=== PATIENT | male | born 1935 | race Two or more races ===

== ENCOUNTER 2024-08-01 22:19 | Inpatient (IN) | payer MEDICARE, BC ==
[~2024-08-01] VITALS: Ht 165.1 cm; Wt 75.4 kg
[2024-08-01 22:24] VITALS: BP 121/52; TEMP 98.1; O2SAT 96
[2024-08-01] MEDS ORDERED: LUBI24CA5 PO (23:14)
[2024-08-01] MEDS ORDERED: METO25TA6 PO (23:14)
[2024-08-01] MEDS ORDERED: QUET25TA PO (23:14)
[2024-08-01] MEDS ORDERED: INSU100V7 SQ (23:14)
[2024-08-01] MEDS ORDERED: SEMA1PEN SQ (23:14)
[2024-08-01] MEDS ORDERED: DAPA5TAB PO (23:14)
[2024-08-01] MEDS ORDERED: INSU100V SQ (23:14)
[2024-08-02 06:52] VITALS: BP 107/42; TEMP 98; O2SAT 96
[2024-08-02] MEDS ORDERED: Medication Not On Formulary EA (Dapagliflozin Propanediol (Farxiga) 5 MG) PO SCH (12:15)
[2024-08-02] MEDS ORDERED: DEXTROSE 50% 50 ML DISP.SYRIN IV PRN (12:45)
[2024-08-02 12:52] VITALS: BP 111/49; TEMP 98.3; O2SAT 98
[2024-08-02] MEDS: METOPROLOL TARTRATE 25 MG TABLET PO SCH (13:08)
[2024-08-02] MEDS: DAPAGLIFLOZIN PROPANEDIOL 5 MG TABLET PO SCH (13:08)
[2024-08-02 16:10] VITALS: BP 118/59; TEMP 98.9; O2SAT 97
[2024-08-02] MEDS ORDERED: INSULIN LISPRO 1000 UNITS/10 ML VIAL(HUMALOG) SQ SCH (17:00)
[2024-08-02] MEDS: INSULIN REGULAR, HUMAN 1000 UNIT/10 ML VIAL SQ PRN (17:37)
[2024-08-02] MEDS: BLOOD SUGAR DIAGNOSTIC 1 EACH STRIP VI SCH (17:39)
[2024-08-02] MEDS ORDERED: Lubiprostone (Amitiza) 24 MCG) PO SCH (18:00)
[2024-08-02 19:35] VITALS: BP 132/62; TEMP 99.1; O2SAT 95
[2024-08-02] MEDS: INSULIN GLARGINE,HUM 300 UNITS/3 ML CARTRIDGE SQ SCH (21:44)
[2024-08-03 06:02] VITALS: BP 126/57; TEMP 99; O2SAT 95
[2024-08-03 07:35] VITALS: BP 124/66; TEMP 99.4; O2SAT 94
[2024-08-03] MEDS: SENNOSIDES/DOCUSATE SODIUM TABLET PO SCH (08:40)
[2024-08-03] MEDS ORDERED: ACETAMINOPHEN 500 MG TABLET PO PRN (14:00)
[2024-08-03] MEDS ORDERED: ACETAMINOPHEN 325 MG TABLET PO PRN (15:00)
[2024-08-03 16:00] VITALS: BP 156/59; TEMP 99.2; O2SAT 97
[2024-08-03 20:00] VITALS: BP 119/48; TEMP 98.8; O2SAT 95
[2024-08-04] MEDS: GUAIFENESIN/DEXTROMETHORPHAN 5 ML UDC PO PRN (00:54)
[2024-08-04 06:00] VITALS: BP 118/59; TEMP 98.9; O2SAT 95
[2024-08-04] MEDS: [UNRECOGNIZED DRUG - OTHER] PO ONE ×2 (10:07→18:08)
[2024-08-04] MEDS: LUBIPROSTONE 24 MCG PO ONE ×2 (10:07→18:08)
[2024-08-04 16:29] VITALS: BP 111/48; TEMP 98.9; O2SAT 95
[2024-08-04 23:09] VITALS: BP 119/52; TEMP 99.3; O2SAT 93
[2024-08-05 06:12] VITALS: BP 93/46; TEMP 98.4; O2SAT 95
[2024-08-05 09:36] LABS: BASOPHILS # (AUTO) 0.1 K/UL (0.0-0.2); BASOPHILS % (AUTO) 0.5 % (0.0-2.0); EOSINOPHILS # (AUTO) 0.1 K/uL (0.0-0.7); HEMATOCRIT 39.4 % (36.7-47.1); HEMOGLOBIN 13.6 g/dL (12.5-16.3); LYMPHOCYTES # (AUTO) 6.5 K/uL (0.8-4.8); LYMPHOCYTES % (AUTO) 56.6 % (20.5-51.5); MEAN CORPUSCULAR HGB CONC 35 g/dL (32.5-36.3); MEAN CORPUSCULAR VOLUME 81.1 fL (73.0-96.2); MONOCYTES % (AUTO) 8.8 % (0.0-11.0); NEUTROPHILS # (AUTO) 3.8 K/uL (1.8-8.9); NEUTROPHILS % (AUTO) 33.1 % (38.5-71.5); PLATELET COUNT (AUTO) 157 K/uL (152-348); RED BLOOD CELL COUNT(AUTO) 4.85 MIL/uL (4.06-5.63); RED CELL DISTRIBUTION WIDTH 15.9 % (12.1-16.2); WHITE BLOOD COUNT (AUTO) 11.5 K/uL (3.6-10.2)
[2024-08-05 09:55] LABS: DIFFERENTIAL COMMENT 1
[2024-08-05 09:57] LABS: ALANINE AMINOTRANSFERASE 25 U/L (16-63); ALBUMIN 2.6 g/dL (3.4-5.0); ALKALINE PHOSPHATASE 66 U/L (50-136); ASPARTATE AMINOTRANSFERASE 11 U/L (15-37); BILIRUBIN,TOTAL 0.6 mg/dL (0.2-1.0); CALCIUM 9.1 mg/dL (8.5-10.1); CARBON DIOXIDE 26 mmol/L (21-32); CHLORIDE 104 mmol/L (98-107); GLUCOSE 123 mg/dL (74-106); MAGNESIUM 2.1 mg/dL (1.8-2.4); PHOSPHOROUS 3.3 mg/dL (2.5-4.9); POTASSIUM 3.6 mmol/L (3.5-5.1); SODIUM SERUM 138 mmol/L (136-145); TOTAL PROTEIN, SERUM 5.7 g/dL (6.4-8.2); UREA NITROGEN, BLOOD 27 mg/dL (7-18)
[2024-08-05 15:31] VITALS: BP 96/45; TEMP 98.3; O2SAT 94
[2024-08-05 20:18] VITALS: BP 95/38; TEMP 97.6; O2SAT 94
[2024-08-06 06:30] VITALS: BP 112/51; TEMP 97.7; O2SAT 96
[2024-08-06] MEDS ORDERED: CIPROFLOXACIN 0.3% OPHT OINT 3.5 GM TUBE EACHEYE SCH (13:00)
[2024-08-06] MEDS: CIPROFLOXACIN 0.3% OPHT DROP 2.5 ML BOTTLE EACHEYE SCH (13:22)
[2024-08-06 16:12] VITALS: BP 124/60; TEMP 98.2; O2SAT 95
[2024-08-06 20:13] VITALS: BP 118/49; TEMP 98.1; O2SAT 97
[2024-08-07 06:05] VITALS: BP_SYST 118; BP_SYST 97; BP_DIAS 49; BP_DIAS 77; TEMP 98; TEMP 98.1; O2SAT 96; O2SAT 97
[2024-08-07 16:11] VITALS: BP 109/48; TEMP 98.6; O2SAT 96
[2024-08-07 20:00] VITALS: BP 99/45; TEMP 98.1; O2SAT 97
[2024-08-08] MEDS: QUETIAPINE FUMARATE 25 MG TABLET PO PRN (02:05)
[2024-08-08 06:00] VITALS: BP 112/48; TEMP 98.2; O2SAT 96
[2024-08-08 07:40] LABS: BASOPHILS % (AUTO) 0.4 % (0.0-2.0); EOSINOPHILS # (AUTO) 0.1 K/uL (0.0-0.7); EOSINOPHILS % (AUTO) 1.1 % (0.0-7.0); HEMATOCRIT 36.3 % (36.7-47.1); HEMOGLOBIN 12.7 g/dL (12.5-16.3); LYMPHOCYTES # (AUTO) 6.2 K/uL (0.8-4.8); LYMPHOCYTES % (AUTO) 69.1 % (20.5-51.5); MEAN CORPUSCULAR HEMOGLOBIN 28.3 uug (23.8-33.4); MEAN CORPUSCULAR HGB CONC 35 g/dL (32.5-36.3); MEAN CORPUSCULAR VOLUME 81.1 fL (73.0-96.2); MONOCYTES # (AUTO) 0.5 K/uL (0.1-1.30); MONOCYTES % (AUTO) 5.9 % (0.0-11.0); NEUTROPHILS # (AUTO) 2.1 K/uL (1.8-8.9); NEUTROPHILS % (AUTO) 23.5 % (38.5-71.5); PLATELET COUNT (AUTO) 154 K/uL (152-348); RED BLOOD CELL COUNT(AUTO) 4.47 MIL/uL (4.06-5.63); RED CELL DISTRIBUTION WIDTH 15.3 % (12.1-16.2)
[2024-08-08 07:48] LABS: DIFFERENTIAL COMMENT 1
[2024-08-08 07:53] LABS: ALANINE AMINOTRANSFERASE 21 U/L (16-63); ALBUMIN 2.5 g/dL (3.4-5.0); ALKALINE PHOSPHATASE 63 U/L (50-136); ASPARTATE AMINOTRANSFERASE 12 U/L (15-37); BILIRUBIN,TOTAL 0.5 mg/dL (0.2-1.0); CALCIUM 9.1 mg/dL (8.5-10.1); CARBON DIOXIDE 28 mmol/L (21-32); CHLORIDE 104 mmol/L (98-107); CREATININE 1.1 mg/dL (0.6-1.3); GLUCOSE 168 mg/dL (74-106); MAGNESIUM 2.2 mg/dL (1.8-2.4); PHOSPHOROUS 3.2 mg/dL (2.5-4.9); SODIUM SERUM 137 mmol/L (136-145); TOTAL PROTEIN, SERUM 5.5 g/dL (6.4-8.2); UREA NITROGEN, BLOOD 21 mg/dL (7-18)
[2024-08-08 12:37] LABS: LYMPHOCYTES % (MANUAL) 65 % (20-40); MONOCYTES % (MANUAL) 7 % (2-10); NEUTROPHILS % (MANUAL) 28 % (42-75)
[2024-08-08 15:43] VITALS: BP 90/47; TEMP 97.8; O2SAT 97
[2024-08-08 20:00] VITALS: BP 115/56; TEMP 98.1; O2SAT 97
[2024-08-09 06:00] VITALS: BP 117/73; TEMP 98.1; O2SAT 100
[2024-08-09 17:00] VITALS: BP 122/47; TEMP 98.1
[2024-08-09 20:00] VITALS: BP 104/48; TEMP 98.6; O2SAT 96
[2024-08-10 06:00] VITALS: BP 123/46; TEMP 97.7; O2SAT 97
[2024-08-10 16:13] VITALS: BP 129/54; TEMP 98.3; O2SAT 97
[2024-08-10 23:15] VITALS: BP 117/54; TEMP 97.9; O2SAT 95
[2024-08-11 07:11] VITALS: BP 137/60; TEMP 98.3; O2SAT 96
[2024-08-11 14:41] LABS: BASOPHILS % (AUTO) 0.5 % (0.0-2.0); EOSINOPHILS # (AUTO) 0.1 K/uL (0.0-0.7); EOSINOPHILS % (AUTO) 0.7 % (0.0-7.0); HEMATOCRIT 38.8 % (36.7-47.1); HEMOGLOBIN 13.1 g/dL (12.5-16.3); LYMPHOCYTES # (AUTO) 5.7 K/uL (0.8-4.8); LYMPHOCYTES % (AUTO) 64.4 % (20.5-51.5); MEAN CORPUSCULAR HEMOGLOBIN 27.9 uug (23.8-33.4); MEAN CORPUSCULAR HGB CONC 34 g/dL (32.5-36.3); MEAN CORPUSCULAR VOLUME 82.4 fL (73.0-96.2); MONOCYTES # (AUTO) 0.7 K/uL (0.1-1.30); NEUTROPHILS # (AUTO) 2.3 K/uL (1.8-8.9); NEUTROPHILS % (AUTO) 26.4 % (38.5-71.5); PLATELET COUNT (AUTO) 197 K/uL (152-348); RED BLOOD CELL COUNT(AUTO) 4.71 MIL/uL (4.06-5.63); RED CELL DISTRIBUTION WIDTH 15.8 % (12.1-16.2); WHITE BLOOD COUNT (AUTO) 8.8 K/uL (3.6-10.2)
[2024-08-11 14:55] LABS: ALANINE AMINOTRANSFERASE 20 U/L (16-63); ALBUMIN 2.7 g/dL (3.4-5.0); ALKALINE PHOSPHATASE 67 U/L (50-136); ASPARTATE AMINOTRANSFERASE 10 U/L (15-37); BILIRUBIN,TOTAL 0.5 mg/dL (0.2-1.0); CARBON DIOXIDE 28 mmol/L (21-32); CHLORIDE 102 mmol/L (98-107); CREATININE 1.3 mg/dL (0.6-1.3); GLUCOSE 318 mg/dL (74-106); POTASSIUM 4.4 mmol/L (3.5-5.1); SODIUM SERUM 138 mmol/L (136-145); TOTAL PROTEIN, SERUM 5.8 g/dL (6.4-8.2); UREA NITROGEN, BLOOD 22 mg/dL (7-18)
[2024-08-11 14:58] LABS: DIFFERENTIAL COMMENT 1
[2024-08-11 15:10] LABS: THYROID STIMULATING HORMONE 1.036 mIU/mL (0.358-3.740)
[2024-08-11 16:06] VITALS: BP 111/50; TEMP 98.2; O2SAT 100
[2024-08-11 16:41] LABS: *BILIRUBIN,URIN NEGATIVE (NEGATIVE); *CLARITY,URINE CLEAR (CLEAR); *COLOR,URINE YELLOW (YELLOW); *KETONES,URINE NEGATIVE (NEGATIVE); *PROTEIN,URINE NEGATIVE (NEGATIVE); LEUKOCYTE ESTERASE ,URINE NEGATIVE (NEGATIVE); NITRITE, URINE NEGATIVE (NEGATIVE); PH,URINE 5.5 (5.0-8.0)
[2024-08-11 16:59] LABS: *BLOOD, URINE TRACE (NEGATIVE); UGLUCOSE 3+ (NEGATIVE)
[2024-08-11 17:02] LABS: BACTERIA,URINE NONE SEEN /HPF (NONE SEEN); RBC,URINE 0-3 /HPF (0-3); SQUAMOUS EPITHELIAL CELL,UR NONE SEEN /HPF (NONE SEEN); WBC,URINE NONE SEEN /HPF (0-3)
[2024-08-11 21:04] VITALS: BP 106/47; TEMP 99; O2SAT 97
[2024-08-12 06:55] VITALS: BP 98/44; TEMP 98.7; O2SAT 96
[2024-08-12 15:38] VITALS: BP 103/57; TEMP 98.4; O2SAT 96
== END 2024-08-12 15:30 | disposition home health service (06) | DRG 177 ==
PROVIDERS: ADMIT Physical Medicine & Rehabilitation Pain Medicine; ATTEND Physical Medicine & Rehabilitation Pain Medicine
DX: U07.1 COVID-19 (principal); G92.8 Other toxic encephalopathy; F05 Delirium due to known physiological condition; N17.9 Acute kidney failure, unspecified; R53.1 Weakness; D69.6 Thrombocytopenia, unspecified; E11.9 Type 2 diabetes mellitus without complications; F03.90 Unspecified dementia, unspecified severity, without behavioral disturbance, psychotic disturbance, mood disturbance, and anxiety; I25.10 Atherosclerotic heart disease of native coronary artery without angina pectoris; I95.1 Orthostatic hypotension; Z85.46 Personal history of malignant neoplasm of prostate; R00.0 Tachycardia, unspecified; H10.9 Unspecified conjunctivitis; Z85.01 Personal history of malignant neoplasm of esophagus
CPT/HCPCS: 36415; 70030-TC; 71045; 83735; 84100; 84443; 85025; 97535-GO-CO; J1815